=== PATIENT | female | born 1980 | race Caucasian/White ===

== ENCOUNTER 2017-02-12 08:38 | Emergency (ER) | payer MEDICAID ==
[~2017-02-12] VITALS: Ht 165.1 cm; Wt 66.0 kg
[2017-02-12 08:40] VITALS: BP 98/56
== END 2017-02-12 09:53 | disposition home or self-care (01) ==
LOC: ED 09:24
DX: S53.402A Unspecified sprain of left elbow, initial encounter (principal); X58.XXXA Exposure to other specified factors, initial encounter; Y93.89 Activity, other specified; Y92.89 Other specified places as the place of occurrence of the external cause; Y99.8 Other external cause status
CPT/HCPCS: 99284

== ENCOUNTER 2017-04-09 17:52 | Emergency (ER) | payer MEDICAID ==
[~2017-04-09] VITALS: Ht 167.6 cm; Wt 62.1 kg
[2017-04-09 18:39] LABS: HEMATOCRIT 40.2 % (34.6-47.8); HEMOGLOBIN 13.4 g/dL (11.7-16.4); WHITE BLOOD COUNT 5.3 x10^3/uL (3.4-10)
[2017-04-09 18:48] LABS: ASPARTATE AMINO TRANSFERASE 28 U/L (15-37); BLOOD UREA NITROGEN 11 mg/dL (7-18)
[2017-04-09 20:30] VITALS: BP 108/57
== END 2017-04-09 20:32 | disposition home or self-care (01) ==
LOC: ED 20:13
DX: O20.9 Hemorrhage in early pregnancy, unspecified (principal); F17.210 Nicotine dependence, cigarettes, uncomplicated
CPT/HCPCS: 36415; 76801; 80053; 84702; 85025; 86901; 99285

== ENCOUNTER 2018-08-14 15:34 | Emergency (ER) | payer MEDICAID ==
[~2018-08-14] VITALS: Ht 167.6 cm; Wt 63.1 kg
[2018-08-14] MEDS ORDERED: LIDOCAINE-MPF 1%, 5ML INFIL ONE (16:00)
[2018-08-14] MEDS ORDERED: PHARMACOKINETIC CONSULTATION MC ONE (16:00)
[2018-08-14] MEDS ORDERED: SODIUM CHLORIDE FLUSH 10ML SYR IVF ONE (16:00)
[2018-08-14] MEDS ORDERED: VANCOMYCIN PER PHARMACY IV ONE (16:00)
--- NOTE | 2018-08-14 16:10 | NUR ---
Labs drawn, including 2 sets of BCs.
--- NOTE | 2018-08-14 16:13 | NUR ---
PIV started. Dr. Vaughn at bedside for I&D.
[2018-08-14 16:15] LABS: BASOPHILS # (AUTO) 0.05 x10^3/uL (0-0.1); BASOPHILS % (AUTO) 1 % (0-1); EOSINOPHILS # (AUTO) 0.29 x10^3/uL (0-0.4); EOSINOPHILS % (AUTO) 3 % (1-7); LYMPHOCYTES # (AUTO) 1.52 x10^3/uL (1-3.4); LYMPHOCYTES % (AUTO) 15 % (22-44); MD NO; MEAN CORPUSCULAR HEMOGLOBIN 28.6 pg (27.0-34.8); MEAN CORPUSCULAR VOLUME 86.9 fL (80-100); MEAN PLATELET VOLUME 6.3 fL (7.4-10.4); MONOCYTES # (AUTO) 0.68 x10^3/uL (0.2-0.8); MONOCYTES % (AUTO) 7 % (2-9); NEUTROPHILS # (AUTO) 7.47 x10^3/uL (1.8-6.8); NEUTROPHILS % (AUTO) 75 % (42-75); PLATELET COUNT 536 x10^3/uL (130-400); RED BLOOD COUNT 4.09 x10^6/uL (3.82-5.3); RED CELL DISTRIBUTION WIDTH 15.4 % (9.6-15.2)
[2018-08-14 16:21] LABS: ALBUMIN 3.6 g/dL (3.4-5.0); ANION GAP 6 mmol/L (5-15); CALCIUM 8.7 mg/dL (8.5-10.1); CHLORIDE 106 mmol/L (98-107); CREATININE 0.75 mg/dL (0.55-1.02)
[2018-08-14] MEDS ORDERED: VANCOMYCIN 1,200 MG in SODIUM CHLORIDE 0.9% 250 ML IV ONE (16:30)
--- NOTE | 2018-08-14 17:05 | NUR ---
Violet PEARCE, at bedside to update pt on ED findings and POC.
[2018-08-14 18:17] VITALS: BP 97/45
--- NOTE | 2018-08-14 18:18 | NUR ---
Pt resting on [place]ino, aware that we are waiting for IV Vanco to finish.
--- NOTE | 2018-08-14 18:40 | NUR ---
Patient/Caregiver given discharge instructions and they have confirmed that they understand the instructions. Patient ambulatory with steady gait.
== END 2018-08-14 18:41 | disposition home or self-care (01) ==
LOC: ED 18:35
DX: L02.31 Cutaneous abscess of buttock (principal)
CPT/HCPCS: 10060; 36415; 80048; 82040; 83605; 84145; 85025; 87040; 96365; 99283; J3370; J7050

== ENCOUNTER 2018-08-15 15:52 | Emergency (ER) | payer MEDICAID ==
[~2018-08-15] VITALS: Ht 167.6 cm; Wt 65.3 kg
[2018-08-15 16:00] VITALS: BP 101/50
--- NOTE | 2018-08-15 16:37 | NUR ---
PT ALSO EDUCATED AT DISCHARGE TO FILL HER RX FROM YESTERDAY
--- NOTE | 2018-08-15 16:37 | NUR ---
Patient/Caregiver given discharge instructions and they have confirmed that they understand the instructions. Patient ambulatory with steady gait. PT LEFT WITH ALL PERSONAL BELONGINGS.
== END 2018-08-15 16:38 | disposition home or self-care (01) ==
LOC: ED 16:29
DX: L02.31 Cutaneous abscess of buttock (principal); F17.200 Nicotine dependence, unspecified, uncomplicated
CPT/HCPCS: 99282; 99283

== ENCOUNTER 2018-11-13 21:46 | Emergency (ER) | payer MEDICAID ==
[~2018-11-13] VITALS: Ht 167.6 cm; Wt 61.0 kg
[2018-11-14 00:49] VITALS: BP 105/78
== END 2018-11-14 00:51 | disposition home or self-care (01) ==
LOC: ED 23:52
DX: M54.5 Low back pain (principal); Z72.9 Problem related to lifestyle, unspecified; F12.10 Cannabis abuse, uncomplicated; F11.10 Opioid abuse, uncomplicated; F15.10 Other stimulant abuse, uncomplicated; F17.200 Nicotine dependence, unspecified, uncomplicated
CPT/HCPCS: 36415; 80053; 80307; 81001; 81025; 85025; 87086; 99283

== ENCOUNTER 2018-12-08 23:16 | Emergency (ER) | payer MEDICAID ==
[~2018-12-08] VITALS: Ht 167.6 cm; Wt 57.4 kg
[2018-12-08 23:17] VITALS: BP 105/64
== END 2018-12-09 01:12 | disposition home or self-care (01) ==
LOC: ED 23:45
DX: L03.312 Cellulitis of back [any part except buttock and flank] (principal); F17.200 Nicotine dependence, unspecified, uncomplicated; Z72.9 Problem related to lifestyle, unspecified
CPT/HCPCS: 99283